=== PATIENT | female | born 1955 | race Caucasian/White ===

== ENCOUNTER → 2023-09-02 11:00 | Outpatient (REF) | payer MEDICARE, SELFPAY | LOC: HWRAD 11:00 | PROVIDERS: ATTENDING PHYSICIAN Surgery Plastic and Reconstructive Surgery; FAMILY PHYSICIAN Family Medicine | DX: K46.9 Unspecified abdominal hernia without obstruction or gangrene (principal) | CPT/HCPCS: 74177; Q9967 ==

== ENCOUNTER → 2023-09-17 13:01 | Outpatient (REF) | payer MEDICARE, SELFPAY | LOC: RCS 13:01 | PROVIDERS: ATTENDING PHYSICIAN Surgery Plastic and Reconstructive Surgery; FAMILY PHYSICIAN Family Medicine; REFERRING PHYSICIAN Surgery | DX: Z01.818 Encounter for other preprocedural examination (principal) | CPT/HCPCS: 93005 ==

== ENCOUNTER 2023-10-06 06:15 | Day surgery (SDC) | payer SELFPAY, MEDICARE ==
[2023-10-06] VITALS (14 sets, daily range): BP systolic 2–138; BP diastolic 53–92; BMI 22.7
[2023-10-06] MEDS: TYLENOL 1000 MG PO (10:45)
[2023-10-06] MEDS: NORMOSOL-R 1000 IV (10:53)
[2023-10-06 11:51] LABS: Hemoglobin 13.4 g/dL (12.0-16.0)
--- NOTE | 2023-10-06 12:58 | W.SUR.PREOP ---
Pre-Operative Surgical Note
-
I have examined this patient prior to the performance of the scheduled procedure.
The patient's condition is unchanged from the time of the current History and
Physical and the patient is able to undergo the scheduled procedure.
--- NOTE | 2023-10-06 16:53 | W.IMMPOSTOP ---
Surgical Immed Post Op Note
-
Primary Surgeon: HEATHER Sethi MD
Assisting Surgeon:
Pre-op Diagnosis: lipodystrophy, diastases recti, skin excess
Post-op Diagnosis: same
Procedure Performed: Lipo abdominoplasty with diastases repair
Anesthesia Type: General
Specimen / Cultures: none
Estimated Blood Loss: 30 cc
Complications: none
Operative Findings: as expected
--- NOTE | 2023-10-06 16:54 | OR.RPT ---
Operative Report
Operative Report
Surgeon: HEATHER Sethi MD
Preoperative diagnosis: Elective cosmetic procedure, lipodystrophy, diastases recti
Postoperative diagnosis: Same
Procedure: Lipo abdominoplasty with diastases repair
Complications: None
Anesthesia: General
EBL: 30 cc
Indications for procedure: Patient is a 68-year-old female with a history of a low transverse hysterectomy. She was left with a tethered scar. She also complained of a bulge that felt to be worsening. A CT scan was performed and it was shown that
she had a severe diastases recti and a small umbilical hernia. The eventration of the abdominal wall was notable enough to justify diagnostic laparoscopy. As such general surgery was involved and Dr. Mathews would be performing this portion of the
case. Risks of lap abdominoplasty reviewed including numbness, bleeding, hematoma, seroma, scar, recurrence, VTE and infection. She understood these risk desired to proceed
Procedure in detail: Patient was identified in the preoperative area and the surgical site was confirmed to be the abdomen and bilateral flanks. Consents were confirmed and all questions were answered. Standard Lipo abdominoplasty markings were
then delineated. Midline was marked a low transverse scar was placed below the prior hysterectomy scar. The relative areas of lipodystrophy were also marked for liposuction. Patient was taken back to the operating placed supine on table. A
Rosado was placed.Anesthesia was induced and an endotracheal tube was placed. Patient was then prepped and draped in usual sterile fashion using ChloraPrep solution. Timeout for patient safety was performed was confirmed that bilateral SCDs were in
place and preoperative antibiotics have been administered. Procedure began first with the injection of local consisting of 2.5 L of tumescent solution. This was distributed along areas for planned liposuction. Off suction, the safe liposuction
procedure was followed. Equilibration was performed followed by Lipo aspiration. A total of approximately 1.5 L of Lipo aspirate was removed. Care was taken to preserve the vasculature along with rectus muscles. The low transverse incision was
then incised with a 15 blade and dissection was continued to Traci's with Bovie electrocautery. Traci's was preserved up to the level of the umbilicus. Dissection then continued along the abdominal wall fascia superiorly to the xiphoid. The
umbilicus was incised and freed maintaining a vascular pedicle. A large diastases was noted with a very very thin tissue intermediate. At this point Dr. Mathews were entered the case and performed a diagnostic laparoscopy. It was determined that
no formal hernia existed, however the diastases repair was performed under direct visualization. Diastases repair was performed with 0 PDS suture in an interrupted fashion followed by a 1 PDS barbed suture oversewn superior and inferior to the
umbilicus Following the diastases repair laparoscopy site was closed and the procedure commenced with closure. Tap blocks were performed with Marcaine and 2 drains were placed. The patient was flexed at the waist and the redundant skin was
marked for excision. This was done with tailor tacking and then completed with a 15 blade followed by Bovie electrocautery. The wound was then closed in layers after marking the new umbilical position. This was performed with 2-0 Vicryl sutures
followed by INSORB harmony and a running 3-0 Monocryl. the umbilicus was then inset and the overlying skin making an inverted U incision and the skin flap. 3-0 Monocryl's followed by 5-0 nylon's were placed in the umbilicus. Drains were sutured
in place with 2-0 Prolene. Patient tolerated the procedure well was performed out complication. All counts were correct at the end the case. She was extubated taken the PACU for further care. Wounds were dressed with bacitracin, dry gauze and
Tegaderm. An abdominal binder was placed and the Rosado was removed..
[2023-10-06] MEDS: ZOFRAN 4 MG IV (17:26)
== END 2023-10-06 18:55 | disposition home or self-care (01) ==
LOC: COSMETIC 06:15
PROVIDERS: Anesthesiology; ATTENDING PHYSICIAN Surgery Plastic and Reconstructive Surgery
DX: Z41.1 Encounter for cosmetic surgery (principal); L98.7 Excessive and redundant skin and subcutaneous tissue; E88.1 Lipodystrophy, not elsewhere classified; K42.9 Umbilical hernia without obstruction or gangrene
CPT/HCPCS: 15830; 85018; C1729

== ENCOUNTER → 2024-01-25 12:59 | Outpatient (REF) | payer MEDICARE, SELFPAY | LOC: WDC 12:59 | PROVIDERS: ATTENDING PHYSICIAN Family Medicine | DX: Z12.31 Encounter for screening mammogram for malignant neoplasm of breast (principal) | CPT/HCPCS: 77063; 77067 ==

== ENCOUNTER → 2024-03-30 10:16 | Outpatient (REF) | payer MEDICARE, SELFPAY ==
[2024-03-30 11:31] LABS: ALT (SGPT) 33 U/L (0-35); AST (SGOT) 38 U/L (14-36); Albumin 4.4 g/dl (3.5-5.0); Alkaline Phosphatase 61 U/L (38-126); Direct Bilirubin 0.1 mg/dl (0.0-0.4); HDL Cholesterol 71 mg/dl; LDL Cholesterol, Calculated 100 mg/dl; Total Cholesterol 204 mg/dl (50-199); Total Protein 7.4 g/dl (6.3-8.2); Triglyceride 169 mg/dl (10-149); Very Low Density Lipoprotein 33 mg/dl (0-30)
== END ==
LOC: REG 10:16
PROVIDERS: ATTENDING PHYSICIAN Family Medicine
DX: E78.2 Mixed hyperlipidemia (principal); R94.5 Abnormal results of liver function studies
CPT/HCPCS: 36415; 80061; 80076

== ENCOUNTER → 2024-12-25 09:48 | Outpatient (REF) | payer MEDICARE, SELFPAY | LOC: RAD 09:48 | PROVIDERS: ATTENDING PHYSICIAN Internal Medicine Endocrinology, Diabetes & Metabolism; FAMILY PHYSICIAN Family Medicine | DX: M81.0 Age-related osteoporosis without current pathological fracture (principal) | CPT/HCPCS: 77080 ==

== ENCOUNTER → 2025-01-26 11:26 | Outpatient (REF) | payer MEDICARE, SELFPAY | LOC: WDC 11:26 | PROVIDERS: ATTENDING PHYSICIAN Family Medicine | DX: Z12.31 Encounter for screening mammogram for malignant neoplasm of breast (principal) | CPT/HCPCS: 77063; 77067 ==